=== PATIENT | female | born 1955 | race Caucasian/White ===

== ENCOUNTER 2017-02-21 10:53 | Emergency (ER) | payer OTHER ==
[2017-02-21] MEDS ORDERED: EPINEPHrine 0.3 MG/0.3 ML SYRINGE IM ONE (11:44)
[2017-02-21] MEDS ORDERED: predniSONE 20 MG TABLET PO STA ×2 (11:44→13:06)
[2017-02-21] MEDS ORDERED: EPINEPHrine 1 MG/ML AMP IM ONE (12:00)
[2017-02-21] MEDS ORDERED: EPINEPHrine 1 MG/ML AMP ONE (12:01)
[2017-02-21] MEDS ORDERED: predniSONE 20 MG TABLET ONE (12:01)
--- NOTE | 2017-02-21 13:01 | ED Physician Documentation ---
PD HPI SKIN - Stated complaint Stated Complaint: RASH - Chief complaint Chief Complaint: Wound - History obtained from History obtained from: Patient, Family - Additional information Additional information: Patient is a 61-year-old female presents with a urticarial rash off and on for the past couple of days. She is currently taking acyclovir for a possible herpes zoster outbreak that started in her right groin area. This rash is resolved and she is concerned that the acyclovir might be causing the allergic reaction. She does have a history of sensitivity to medications and actually has C. difficile infection in the past. She does not currently have any diarrhea. Denies any chest pain, shortness of breath, nausea vomiting, constipation diarrhea or lower urinary symptoms. Review of systems: For pertinent positive and negative questions for the review of systems please see history of present illness. Otherwise all other systems have been reviewed and are negative. Dragon disclaimer: Parts of this medical record were created using voice recognition technology. Because of the inherent limitations of this system occasional same sounding word substitutions do occur and persist despite proofreading. Please read the document for context. PD PAST MEDICAL HISTORY - Past Medical History Past Medical History: Yes Neuro: Headache/migraine GI: GERD Other Past Medical History: scoliosis - Past Surgical History Past Surgical History: Yes General: Cholecystectomy - Present Medications Home Medications: Ambulatory Orders Medication Instructions Recorded Confirmed Cetirizine [ZyrTEC] 10 mg PO DAILY 02/21/17 02/21/17 Estradiol/Norethindrone Acet 1 tab PO DAILY 02/21/17 02/21/17 [Amabelz 0.5 mg-0.1 mg Tablet] Gabapentin 100 mg PO DAILY 02/21/17 02/21/17 Omeprazole [PriLOSEC] 40 mg PO DAILY 02/21/17 02/21/17 Prednisone 40 mg PO DAILY #8 tablet 02/21/17 Sumatriptan [Imitrex] 100 mg PO DAILY PRN 02/21/17 02/21/17 - Allergies Allergies/Adverse Reactions: Allergies Allergy/AdvReac Type Severity Reaction Status Date / Time cefuroxime Allergy Unknown Verified 02/21/17 11:00 latex Allergy Rash Verified 02/21/17 11:00 Sulfa (Sulfonamide Allergy Respiratory Verified 02/21/17 11:00 Antibiotics) vancomycin Allergy Unknown Verified 02/21/17 11:00 - Social History Does the pt smoke?: No Smoking Status: Never smoker Does the pt drink ETOH?: No Does the pt have substance abuse?: No PD ED PE NORMAL - General General: Alert and oriented X 3, No acute distress, Well developed/nourished - HEENT HEENT: Atraumatic, PERRL, EOMI - Neck Neck: No bony TTP - Cardiac Cardiac: RRR, No gallop - Respiratory Respiratory: No respiratory distress, Clear bilaterally - Abdomen Abdomen: Normal bowel sounds, Non tender - Derm Derm: Other (Generalized urticarial rash in clusters in the lower part of her anterior abdomen and the lower part of her back.) Results - Vitals Vitals: Vital Signs - 24 hr 02/21/17 02/21/17 02/21/17 10:56 12:15 12:26 Temperature 36.2 C L Heart Rate 71 65 88 Respiratory 16 18 Rate Blood Pressure 135/71 H O2 Saturation 100 99 100 Oxygen O2 Source Room air Departure - Departure Disposition: 01 Home, Self Care Clinical Impression: Urticaria Condition: Good Instructions: ED Allergic Reaction General Other Follow-Up: Telly Winkler MD [Emergency Provider] - Prescriptions: Prednisone 40 mg PO DAILY #8 tablet
[2017-02-21 13:17] VITALS: BP 127/78
== END 2017-02-21 13:14 | disposition home or self-care (01) ==
LOC: ED 10:53
DX: L50.9 Urticaria, unspecified (principal)
CPT/HCPCS: 96372; 99283; J7512